=== PATIENT | female | born 1985 | race Caucasian/White ===

== ENCOUNTER 2019-03-02 15:24 | Inpatient (IN) | payer OTHER ==
[2019-03-02] MEDS ORDERED: Buffered Lidocaine 1% SYRIN* 1 ML/SYRINGE INTRADERM ONE (16:15)
[2019-03-02] MEDS ORDERED: Lactated Ringers 1000 ML Bag* 1,000 ML IV ONE (16:15)
--- NOTE | 2019-03-02 16:25 | HP ---
General Information - Reason for Visit 34 year old at 41 5/7 weeks gestation with regular uterine contractions here for labor evaluation - General Information Maternal Age: 34 Grav: 1 Para: 0 SAB: 0 IEA: 0 Estimated Due Date: 02/18/19 Determined By: LMP Gestational Age in Weeks/Days: 41 5/7 Maternal Blood Type and Rh: O Positive - Results this Serology/RPR Result: Non-Reactive Rubella Result: Non-Immune HBsAg Result: Negative HIV Result: Negative GBS Culture Result: Negative Past Medical History Delivery History: See Records Delivery History Comment: No prior deliveries Pertinent Past Medical History: Non-Contributory Past Surgical History Comment: [place] tooth extraction Pertinent Family History: See Records Family History Comment: Father: lymphoma (in remission), heart disease Mother: endometriosis - Antepartal Records Antepartal Records: Reviewed, Complicated by: - rubella nonimmune, intermittent PACs on auscultation of FHR Review of Systems Constitutional: Uncomfortable CV Complaint: No Respiratory: Shortness of Breath: No Gastrointestinal: No Nausea/Vomiting, Normal Bowel Movement Genitourinary: No Dysuria, No Bleeding, No Leaking Fluid Musculoskeletal: No Epigastric Pain, Back Pain, Contractions Neurological: No Headache, No Visual Changes Movement: Normal Exam Allergies/Adverse Reactions: Allergies No Known Allergies Allergy (Verified 10/13/17 09:27) T: 98.3, P: 83, RR: 18, B/P: 126/72 - Measurements Height: 5 ft 6 in Weight: 162 lb Weight in lbs: 162.719299 Body Mass Index (BMI): 26.1 Pre- Weight: 135 lb Weight Gained This : 27 lbs and 0 ozs - Exam Breast: Breast Exam Deferred Heart: Normal Rhythm/Heart Sounds HEENT: No Significant Findings - Abdominal Exam Abdomen Exam: Non-Tender, Fundal Height Consistent with Dates - Ultrasound/Biophysical Profile Ultrasound Status: Not Done Targeted Exam Findings See L&D Outpatient Visit Provider Note for Findings: N/A Estimated Weight: 7.5 lb by alexx's Cervical Exam: 3cm Effacement: 80% Station: -1 Presenting Part: Vertex Membrane Status: Intact Bleeding/Discharge: None EFM Findings - External Monitor Findings Baseline Heart Rate: 135 External Monitor Findings: Accelerations Present, No Pattern of Variable or Late Decelerations, Variability Moderate, Baseline Stable Contractions: Regular, Moderate, 45-90 Seconds Contraction Frequency: 3-5 minutes Assessment/Plan - Assessment A: 34 yo with IUP at 41 5/7 Category I FHR Early Active labor GBS negative P: Admit to inpatient Discussed labor preferences, she hopes to avoid epidural but is open to it if needed Encouraged position changes, getting in tub Anticipate SVB - Obstetrical Risk Factors Obstetrical Risk Factors: Post-Dates - Plan Plan: Admit - Anticipate Vaginal Delivery - Date/Time of Admission Date of Admission: 03/02/19 Time of Admission: 16:00
[2019-03-02] MEDS ORDERED: Lactated Ringers 1000 ML Bag* 1,000 ML IV SCH (17:00)
--- NOTE | 2019-03-02 17:49 | PN ---
Progress Note - Progress Note Date of Service: 03/02/19 Note: S: Iliana reports feeling more pressure with UCs, Derrick and Morris Oakes at bedside providing support O: VS: B/P 126/72, P 85, T 98.6 FHR: 135 by intermittent auscultation UCs: q 3-4 min by palpation, moderate VE: vertex, 5/90/-1 A: IUP at 41 5/7 weeks No evidence of metabolic acidemia Active labor P: She desires to get back in the tub Anticipate SVB Reassess in 2-3 hrs or sooner as needed
--- NOTE | 2019-03-02 19:53 | PN ---
Progress Note - Progress Note Date of Service: 03/02/19 Note: S: Using nitrous oxide for pain relief, difficulty feeling comfortable in any position. Has been up to toilet for BM. O: VS: B/P: 130/77, P: 89, RR: 20, T: 99.5 FHR: 145, moderate variability, +accels, one isolated variable deceleration UCs: q2-4 minutes, moderate to firm by palpation VE: 7.5/90/-1, bulging bag of water. Bloody show. A: IUP at 41 5/7 weeks Active labor P: Continue with position changes Re-assess in 1-2 hours or sooner as needed Anticipate SVB
[2019-03-03] MEDS ORDERED: Measles, Mumps,Rubella VACC* 0.5 ML/VIAL SUBCUT ONE (00:39)
[2019-03-03] MEDS ORDERED: Glycerin ADULT SUPP PR PRN (00:39)
[2019-03-03] MEDS ORDERED: Witch Hazel PAD* JAR TOPICAL PRN (00:39)
[2019-03-03] MEDS ORDERED: Dibucaine 1% 28.35 GM TUBE PR PRN (00:39)
--- NOTE | 2019-03-03 00:50 | PROCNOTE ---
[facility] OB: Delivery Note - Delivery A Date of : 03/03/19 Time of : 00:11 [place] Sex: Female Score 1 Minute: 8 Score 5 Minutes: 9 Gestational Age in Weeks and Days at Delivery: 41 Weeks and 6 Days Delivery Method: Spontaneous Vaginal Labor: Spontaneous Did Patient attempt ?: N/A, No Previous Amniotic Fluid: Clear Estimated Blood Loss: 400 Anesthesia/Analgesia: Nitrous-Labor Delivered By: Lucila Cassa - Nursery Level of Nursery: Regular/Bedside - Perineum Perineal Injury: Periurethral Laceration Perineal Injury Comment: Hemostatic, well-approximated, no repair needed Perineal Repair: None - Events Delivery Events of Note: Supplemental O2 to Mother, Post- Bleeding - Meds Given, Pushed > 3 Hours - Additional Delivery Notes Additional Delivery Notes: Called to bedside following SROM of clear fluid at 2006. Patient progressed to complete and began spontaneously pushing at 2020. Required much coaching and much time to push effectively. Pushing more effective once nitrous oxide discontinued. Slow of head lead to delivery of liveborn female OA to XIOMARA with nuchal hand at 0011. Shoulders followed easily with next push. Infant to mother's chest, spontaneous cry noted, dried and stimulated. Apgars 8 and 9. Cord clamped x 2 and cut by CNM, cord segment obtained for choline study. Jessica delivery of intact placenta followed at 0025. Brisk vaginal bleeding noted, fundus slightly boggy. 10 units IM Pitocin given, fundus firm and bleeding decreased. Perineum inspected, left labial laceration noted. Hemostatic, no repair necessary. At time of note mother and in stable condition. EBL = 400 ml
[2019-03-03] MEDS ORDERED: Lactated Ringers 1000 ML Bag* 1,000 ML IV SCH (01:00)
[2019-03-03] MEDS: Ibuprofen TAB* 600 MG PO PRN ×3 (01:02→15:07)
[2019-03-03] MEDS ORDERED: OXYTOCIN* 10 UNITS/ML 1 ML VIAL ONE (03:13)
[2019-03-03] MEDS ORDERED: Lidocaine 1% INJ* 10 MG/ML 30 ML SDV ONE (03:16)
[2019-03-03] MEDS ORDERED: Simethicone TAB* 80 MG TAB.CHEW PO SCH (08:30)
[2019-03-03] MEDS: Docusate CAP* 100 MG PO SCH ×3 (08:31→20:18)
[2019-03-03] MEDS: Acetaminophen TAB* 325 MG PO PRN ×2 (15:08→20:18)
--- NOTE | 2019-03-03 15:16 | PTEDU ---
Patient Name: SUNIL BROWNE SUNIL BROWNE selected video: Follow Me Mum: [employer] to view on 2018 at 3:15:06 PM from [id number]
[2019-03-04] MEDS: Ibuprofen TAB* 600 MG PO PRN ×3 (04:04→22:03)
[2019-03-04 07:42] LABS: ABS Basophils 0.1 10^3/ul (0-0.2); ABS Eosinophils 0.1 10^3/ul (0-0.6); ABS Lymphocytes 2.9 10^3/ul (1.0-4.8); ABS Monocytes 0.8 10^3/ul (0-0.8); ABS Neutrophils 10.8 10^3/ul (1.5-7.7); ABS Nucleated RBC 0 10^3/ul; Eosinophil % 0.9 %; Hematocrit 31 % (33-41); Hemoglobin 10.5 g/dL (12.0-16.0); Lymphocyte % 19.8 %; Mean Corpuscular HGB Conc 34 g/dL (31-36); Mean Corpuscular Hemoglobin 31 pg (27-31); Mean Corpuscular Volume 90 fL (80-97); Mean Platelet Volume 9.4 fL (7.4-10.4); Nucleated Red Blood Cells % 0; Platelet Count 168 10^3/uL (150-450); Red Blood Count 3.45 10^6 /uL (3.70-4.87); Red Cell Distribution Width 14 % (10.5-15); White Blood Count 14.7 10^3/uL (3.5-10.8)
[2019-03-04] MEDS: Acetaminophen TAB* 325 MG PO PRN (07:51)
[2019-03-04] MEDS: Docusate CAP* 100 MG PO SCH ×3 (07:51→22:03)
[2019-03-04] MEDS ORDERED: Ferrous Gluconate TAB* 324 MG TAB PO SCH (09:00)
[2019-03-04] MEDS ORDERED: Measles, Mumps,Rubella VACC* 0.5 ML/VIAL ONE (21:56)
[2019-03-05] MEDS: Ibuprofen TAB* 600 MG PO PRN ×2 (03:45→10:02)
[2019-03-05 08:12] VITALS: BP 128/75
[2019-03-05] MEDS: Docusate CAP* 100 MG PO SCH (10:02)
== END 2019-03-05 11:21 | disposition home or self-care (01) | DRG 806 ==
LOC: MCHOBOUT 15:24 → MCHOB 16:02
PROVIDERS: ADMIT Midwife; ATTEND Midwife
PROC: 4A1HXCZ Monitoring of Products of Conception, Cardiac Rate, External Approach (ICD-10-PCS; principal; 2019-03-03)
PROC: 10E0XZZ Delivery of Products of Conception, External Approach (ICD-10-PCS; 2019-03-03)
DX: O48.0 Post-term pregnancy (principal); O72.1 Other immediate postpartum hemorrhage; Z37.0 Single live birth; O71.82 Other specified trauma to perineum and vulva; O70.0 First degree perineal laceration during delivery; O75.89 Other specified complications of labor and delivery; K64.9 Unspecified hemorrhoids; Z3A.41 41 weeks gestation of pregnancy; Z87.820 Personal history of traumatic brain injury
CPT/HCPCS: 36415; 85025; 90707; A9270-GY; J2590

== ENCOUNTER 2021-04-03 13:02 | Inpatient (IN) ==
[2021-04-03] MEDS ORDERED: Penicillin G Potassium IV 5,000,000 UNITS in NS 0.9% 100 ml BAG 100 ML IVPB ONE (13:27)
[2021-04-03] MEDS ORDERED: Buffered Lidocaine 1% SYRIN 1 ml INTRADERM ONE (13:27)
[2021-04-03] MEDS ORDERED: Lactated Ringers 1000 ml BAG 1,000 ML IV ONE (13:27)
[2021-04-03 13:56] LABS: ABS Basophils 0.1 10^3/ul (0-0.2); ABS Eosinophils 0.1 10^3/ul (0-0.6); ABS Lymphocytes 2.6 10^3/ul (1.0-4.8); ABS Monocytes 0.7 10^3/ul (0-0.8); ABS Neutrophils 11.7 10^3/ul (1.5-7.7); Eosinophil % 0.6 %; Hematocrit 37 % (35-47); Lymphocyte % 17.3 %; Mean Corpuscular HGB Conc 35 g/dL (31-36); Mean Corpuscular Hemoglobin 30 pg (27-31); Mean Corpuscular Volume 87 fL (80-97); Mean Platelet Volume 9.5 fL (7.4-10.4); Nucleated Red Blood Cells % 0.1; Platelet Count 225 10^3/uL (150-450); Red Blood Count 4.28 10^6 /uL (3.70-4.87); Red Cell Distribution Width 15 % (10-15); White Blood Count 15.3 10^3/uL (3.5-10.8)
[2021-04-03] MEDS ORDERED: Lactated Ringers 1000 ml BAG 1,000 ML IV SCH (14:00)
[2021-04-03 15:11] LABS: Urine Benzodiazepine Screen None Detected (None Detect); Urine Cannabinoids Screen None Detected (None Detect); Urine Opiates Screen None Detected (None Detect)
[2021-04-03] MEDS ORDERED: Glycerin ADULT 2.4 gm SUPP PR PRN (16:39)
[2021-04-03] MEDS ORDERED: Witch Hazel PAD JAR TOPICAL PRN (16:39)
[2021-04-03] MEDS ORDERED: Dibucaine 1% OINT 28.35 GM TUBE PR PRN (16:39)
[2021-04-03] MEDS ORDERED: Oxytocin in LR 20 UNITS/1,000 ML BAG IVPB ONE (18:00)
[2021-04-03] MEDS ORDERED: Oxytocin in LR 20 UNITS/1,000 ML BAG IVPB SCH (19:00)
[2021-04-04 07:58] LABS: ABS Lymphocytes 1.8 10^3/ul (1.0-4.8); ABS Monocytes 0.7 10^3/ul (0-0.8); ABS Neutrophils 9.9 10^3/ul (1.5-7.7); Eosinophil % 0.3 %; Hematocrit 33 % (35-47); Hemoglobin 11.4 g/dL (12.0-16.0); Lymphocyte % 14.6 %; Mean Corpuscular HGB Conc 35 g/dL (31-36); Mean Corpuscular Hemoglobin 30 pg (27-31); Mean Corpuscular Volume 88 fL (80-97); Mean Platelet Volume 8.9 fL (7.4-10.4); Platelet Count 177 10^3/uL (150-450); Red Blood Count 3.77 10^6 /uL (3.70-4.87); Red Cell Distribution Width 14 % (10-15); White Blood Count 12.5 10^3/uL (3.5-10.8)
[2021-04-05 07:47] VITALS: BP 117/68
== END 2021-04-05 14:17 | disposition home or self-care (01) | DRG 806 ==
LOC: MCHOBOUT 13:02 → MCHOB 13:23
PROVIDERS: ADMIT Midwife; ATTEND Midwife